=== PATIENT | female | born 1945 | race Caucasian/White ===

== ENCOUNTER → 2017-04-20 | Outpatient (CLI) | payer MEDICARE, OTHER ==
--- NOTE | 2017-04-20 16:04 | XR ---
Abdomen HISTORY: Right-sided pain and nausea, history of renal stones, N20.0 Frontal view of the abdomen on 2 images correlated to prior of 02/23/2016 Overlying bowel gas may obscure detail. Calcification in the right hemipelvis is stable and may repre sent a phlebolith, smaller phleboliths suspected. Degenerative disc changes are present in the visual ized spine, there is a gentle spinal curvature. Metallic density in the left upper quadrant is stable and may be vascular. IMPRESSION: No acute abnormalities evident
== END | disposition home or self-care (01) ==
LOC: RADXRMAIN 15:42
PROVIDERS: ATTEND Urology
DX: N20.0 Calculus of kidney (principal)
CPT/HCPCS: 74000

== ENCOUNTER → 2017-05-10 | Outpatient (CLI) | payer MEDICARE, OTHER ==
--- NOTE | 2017-05-10 09:01 | CT ---
EXAMINATION TYPE: CT abdomen pelvis wo con DATE OF EXAM: 05/10/2017 COMPARISON: NONE INDICATION: Left flank pain, abdominal pain DLP: 1848.9 mGycm, Automated exposure control for dose reduction was used. CONTRAST: 0 mL of Omnipaque 300. Study performed without Oral Contrast TECHNIQUE: Axial images were obtained from above the diaphragm to the pubic rami in the axial plane a t 5 mm thick sections. Reconstructed images are reviewed on the computer in the coronal plane. FINDINGS: Limited CT sections are obtained the lung bases. Very minimal compressive atelectasis is within the dependent portions of the lung bases.. Coronary artery calcification is present. CT ABDOMEN: Liver: Normal Spleen: Normal Pancreas: Normal Adrenal glands: The adrenal glands are normal. Gallbladder: Gallstone is present. Kidneys: No masses are evident. No hydronephrosis is present. No cysts are present. There is a pun ctate calcification at the superior pole left kidney. No obstruction is evident. Left kidney Inferior pole calcification measures approximately 0.3 cm and appears nonobstructive. Aorta: Vascular calcification is within the aorta. Inferior vena cava: Normal. CT PELVIS: Loops of bowel within the abdomen and pelvis are normal. Study is without oral contrast limiting the evaluation. Appendix: Normal as visualized. Urinary bladder: Normal. Genitourinary structures: Uterus is normal adnexal regions are unremarkable Osseous structures: No suspicious lytic or sclerotic lesions. Degenerative disc changes are within th e lumbar spine with vacuum disc phenomenon. Spondylosis is present. Posterior endplate spurring is in the upper lumbar spine. IMPRESSIONS: 1. Nonobstructing punctate left renal stones. 2. Cholelithiasis. 3. Degenerative disc changes lumbar spine
== END | disposition home or self-care (01) ==
LOC: RADCTMAIN 08:19
PROVIDERS: ATTEND Urology
DX: N20.0 Calculus of kidney (principal); K80.20 Calculus of gallbladder without cholecystitis without obstruction; Z88.8 Allergy status to other drugs, medicaments and biological substances
CPT/HCPCS: 74176